=== PATIENT | female | born 1980 | race Caucasian/White ===

== ENCOUNTER 2017-08-25 12:08 | Emergency (ER) | payer OTHER ==
[2017-08-25 12:53] VITALS: BP 121/80; PULSE 68; RESP 18; TEMP 97.8; O2SAT 99
--- NOTE | 2017-08-25 13:49 | ED PDOC ---
Upper Extremity Pain/Injury Time Seen by Provider: 08/25/17 13:07 Chief Complaint (Nursing): Upper Extremity Problem/Injury Chief Complaint (Provider): Bilateral hand pain History Per: Patient History/Exam Limitations: no limitations Onset/Duration Of Symptoms: Days Current Symptoms Are (Timing): Still Present Quality: Tightness Additional History Per: Patient Additional Complaint(s): 37yo female, presents to ED with complaints of bilateral hand stiffness and swelling, worse in the morning and improving through the day for the past 3 days. She reports she has been taking Advil to manage her pain with some relief , last dose was at 8AM this morning. Otherwise, she denies any weakness, numbness, tingling, trauma or injury to her hands. No other medical complaints. Patient further expresses concern due to her mother's history of rheumatoid arthritis. Past Medical History Reviewed: Historical Data, Nursing Documentation, Vital Signs Vital Signs: Last Vital Signs Temp 97.8 F 08/25/17 12:51 Pulse 68 08/25/17 12:51 Resp 18 08/25/17 12:51 BP 121/80 08/25/17 12:51 Pulse Ox 99 08/25/17 12:51 - Medical History PMH: Anxiety, Arthritis, Bipolar Disorder, Depression - Surgical History Surgical History: No Surg Hx - Family History Family History: States: Other Other Family History: Mother with Rheumatoid arthritis - Social History Alcohol: Occasional Drugs: Cannabis (occasional) - Home Medications Home Medications: Ambulatory Orders Medication Instructions Recorded Cetirizine Hydrochloride [Zyrtec] 1 tab PO DAILY #15 tab 09/08/14 Fluticasone Propionate [Flonase] 1 spr NS DAILY #1 spray 09/08/14 Ondansetron [Zofran] 4 mg PO Q8H #9 tab 11/27/14 Meloxicam [Mobic] 15 mg PO DAILY #14 tab 08/25/17 - Allergies Allergies/Adverse Reactions: Allergies Allergy/AdvReac Type Severity Reaction Status Date / Time No Known Allergies Allergy Verified 09/08/14 15:45 Review of Systems ROS Statement: Except As Marked, All Systems Reviewed And Found Negative Musculoskeletal: Positive for: Hand Pain (bilateral hand pain and stiffness) Neurological: Negative for: Weakness, Numbness Physical Exam - Reviewed Nursing Documentation Reviewed: Yes Vital Signs Reviewed: Yes - Physical Exam Appears: Positive for: Well, Non-toxic, No Acute Distress Head Exam: Positive for: ATRAUMATIC, NORMOCEPHALIC Skin: Positive for: Normal Color, Warm, Dry. Negative for: Rash Eye Exam: Positive for: EOMI, PERRL Neck: Positive for: Painless ROM, Supple Cardiovascular/Chest: Positive for: Regular Rate, Rhythm Respiratory: Positive for: Normal Breath Sounds. Negative for: Decreased Breath Sounds, Accessory Muscle Use, Respiratory Distress Extremity: Positive for: Normal ROM (FROM of bilateral hand at wrists, FROM of all digits. ), Tenderness (diffuse tenderness to all digits (-) erythema (-) overlying skin changes (-) warmth (-) evidence of cellulitis. Cap refill < 2 seconds in all digits.), Other (normal neurovascular sensations of bilateral hands and all digits. [employer] strength 5/5 bilaterally.). Negative for: Deformity , Swelling Neurologic/Psych: Positive for: Alert, Oriented. Negative for: Motor/Sensory Deficits - ECG O2 Sat by Pulse Oximetry: 99 (RA) Pulse Ox Interpretation: Normal Medical Decision Making Medical Decision Making: Impression: Bilateral hand pain probable rheumatoid arthritis Plan: -- Toradol 30mg IM -- Patient instructed to follow up with a packing house supervisor for further evaluation of presentation. 1345 On re-evaluation, patient reports improvement of symptoms. On exam, patient remains AAOx3, in no acute distress. On exam, neck is supple, lungs CTA, cardiac RRR, abdomen is soft and non-tender, neuro exam shows no focal findings. Diagnostic results d/w the patient in great detail. Dx of acute bilateral hand pain, consider rheumatoid arthritis d/w the patient. Based on history, exam and diagnostic results plan will be for discharge and outpatient follow. Advised to follow up with primary care physician in 1-2 days without fail. Advised to take medication as prescribed. Return to the emergency room at any time for any new or worsening symptoms. Patient states she fully agrees with and understands discharge instructions. States that she agrees with the plan and disposition. Verbalized and repeated discharge instructions and plan. I have given the patient opportunity to ask any additional questions. Scribe Attestation: Documented by Marla Lawler acting as a scribe for SHEYLA Vasquez Provider Attestation: All medical record entries made by the Scribe were at my direction and personally dictated by me. I have reviewed the chart and agree that the record accurately reflects my personal performance of the history, physical exam, medical decision making, and the department course for this patient. I have also personally directed, reviewed, and agree with the discharge instructions and disposition. Disposition - Clinical Impression Clinical Impression: Bilateral hand pain, Rheumatoid arthritis - Disposition Referrals: [facility] [Outside] Disposition: Routine/Home Disposition Time: 13:53 Condition: STABLE Prescriptions: Meloxicam [Mobic] 15 mg PO DAILY #14 tab Instructions: Rheumatoid Arthritis, Muscle and Bone Pain (DC), Hand Pain Forms: [facility] (Arabic) Print Language: SINHALA
== END 2017-08-25 14:28 | disposition home or self-care (01) ==
LOC: H.ER 12:08
DX: M79.641 Pain in right hand (principal); M79.642 Pain in left hand; M06.9 Rheumatoid arthritis, unspecified; Z86.59 Personal history of other mental and behavioral disorders
CPT/HCPCS: 96372; 99283; J1885

== ENCOUNTER 2017-11-21 15:29 | Emergency (ER) | payer OTHER ==
[2017-11-21 15:34] VITALS: BP 127/85
[2017-11-21 15:36] VITALS: PULSE 72; RESP 18; TEMP 99; O2SAT 99
--- NOTE | 2017-11-21 16:13 | ED PDOC ---
HPI: CCC, URI, Sore Throat Time Seen by Provider: 11/21/17 15:40 Chief Complaint (Nursing): ENT Problem Chief Complaint (Provider): b/l eye discharge, right ear pain History Per: Patient History/Exam Limitations: no limitations Have you had recent travel within the past 21 days to any of the following countries: [place], [place], [place] or [place]?: No Current Symptoms Are (Timing): Still Present Sick Contacts (Context): None Ear Symptoms: Right: Ear Drainage Additional Complaint(s): 37 year old female presents to ED with complaints of bilateral eye redness and discharge since last night and right ear pain x3 days. Patient does not wear contacts or glasses. She denies any fever or chills. Advil has helped with right ear pain. PCP: Dr. Braun Past Medical History Reviewed: Historical Data, Nursing Documentation, Vital Signs Vital Signs: Last Vital Signs Temp 99 F 11/21/17 15:33 Pulse 72 11/21/17 15:33 Resp 18 11/21/17 15:33 BP 127/85 11/21/17 15:33 Pulse Ox 99 11/21/17 16:25 - Medical History PMH: Anxiety, Arthritis, Bipolar Disorder, Depression - Surgical History Surgical History: No Surg Hx - Family History Family History: States: No Known Family Hx - Living Arrangements Living Arrangements: With Family - Social History Current smoker - smoking cessation education provided: No Alcohol: None Drugs: Denies - Home Medications Home Medications: Ambulatory Orders Medication Instructions Recorded Cetirizine Hydrochloride [Zyrtec] 1 tab PO DAILY #15 tab 09/08/14 Fluticasone Propionate [Flonase] 1 spr NS DAILY #1 spray 09/08/14 Ondansetron [Zofran] 4 mg PO Q8H #9 tab 11/27/14 Meloxicam [Mobic] 15 mg PO DAILY #14 tab 08/25/17 Amoxicillin/Clavulanate [Augmentin 1 tab PO BID #14 tab 11/21/17 875 MG-125 MG] Neomycin/Polymyxin/Hydrocort 4 drop TOP BID #1 bottle 11/21/17 [Cortisporin Otic Soln] Tobramycin [Tobrex] 5 ml TOP QID #1 bottle 11/21/17 - Allergies Allergies/Adverse Reactions: Allergies Allergy/AdvReac Type Severity Reaction Status Date / Time No Known Allergies Allergy Verified 09/08/14 15:45 Review of Systems ROS Statement: Except As Marked, All Systems Reviewed And Found Negative Constitutional: Negative for: Fever Eyes: Positive for: Other (bilateral eye redness and discharge) ENT: Positive for: Other (right ear pain for 3 days). Negative for: Nose Congestion, Throat Pain, Throat Swelling Respiratory: Negative for: Cough Gastrointestinal: Negative for: Nausea, Vomiting Neurological: Negative for: Headache, Dizziness Physical Exam - Reviewed Nursing Documentation Reviewed: Yes Vital Signs Reviewed: Yes - Physical Exam Appears: Positive for: Non-toxic, No Acute Distress Skin: Positive for: Normal Color. Negative for: Rash Eye Exam: Positive for: EOMI, PERRL, Conjunctival injection (with scant yellow discharge bilaterally). Negative for: Nystagmus, Periorbital swelling, Periorbital tenderness ENT: Positive for: TM Is/Are (RIGHT EAR: canal edema and erythema with bulging TM, left ear wnl). Negative for: Normal ENT Inspection Cardiovascular/Chest: Positive for: Regular Rate, Rhythm Respiratory: Positive for: Normal Breath Sounds Neurologic/Psych: Positive for: Alert, Oriented - Laboratory Results Urine POC: Negative (patient declined test, she is certain she is not ) - ECG O2 Sat by Pulse Oximetry: 99 (RA) Pulse Ox Interpretation: Normal Medical Decision Making Medical Decision Makin Initial impression: bilateral conjunctivitis and right otitis media Patient will be discharged home with prescriptions for cortisporin otic drops, Augmentin, and tobramycin eye drops. Advised PMD follow up in 2-3 days. Scribe Attestation: Documented by Gisella Price, acting as a scribe for Maral Llanes PA-C Provider Scribe Attestation: All medical record entries made by the Scribe were at my direction and personally dictated by me. I have reviewed the chart and agree that the record accurately reflects my personal performance of the history, physical exam, medical decision making, and the department course for this patient. I have also personally directed, reviewed, and agree with the discharge instructions and disposition. Disposition - Clinical Impression Clinical Impression: Otitis media, Conjunctivitis - Patient ED Disposition Is Patient to be Admitted: No Counseled Patient/Family Regarding: Diagnosis, Need For Followup, Rx Given - Disposition Referrals: Alicja Braun FNP [Advanced Practice Nurse] - Disposition: Routine/Home Disposition Time: 16:07 Condition: STABLE Additional Instructions: Take prescription meds as directed. Continue with Advil for pain. Follow-up in 2 -3 days with primary doctor. 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
== END 2017-11-21 16:35 | disposition home or self-care (01) ==
LOC: H.ER 15:29
DX: H10.9 Unspecified conjunctivitis (principal); H66.91 Otitis media, unspecified, right ear; F31.9 Bipolar disorder, unspecified; F41.9 Anxiety disorder, unspecified